=== PATIENT | female | born 1960 | race African-American/Black ===

== ENCOUNTER 2021-08-14 12:18 | Emergency (ER) | payer OTHER ==
[~2021-08-14 12:18] MED LIST: ANTIVERT25 MG PO; AZITHROMYCIN250 MG PO; BACLOFEN 20MG T20 MG PO; CEFDINIR300 MG PO; CYMBALTA20 MG PO; FLONASE ALLER15.8 ML; HCTZ25 MG PO; LISINOPRIL 20MG20 MG PO; MEDROL 4MG DOSEP4 MG PO; MOTRIN600 MG PO; NEURONTIN100 MG PO; NORCO 5-325 TA1 EACH PO; NORVASC10 MG PO; PANTOPRAZOLE SO20 MG PO; PERCOCET 5-3251 EACH PO; POTASSIUM PO; PRAVASTATIN SOD20 MG PO; PREDNISONE 20MG20 MG PO; PROMETHAZINE-D118 ML PO; TRAMADOL HCL50 MG PO; VITAMIN D35000 UNIT PO; ZOFRAN4 MG PO; ZYRTEC10 M3 PO
[2021-08-14 15:54] LABS: CORONAVIRUS 2019 SARS-COV-2 NEGATIVE (NEGATIVE); INFLUENZA A NAA NEGATIVE (NEGATIVE)
[2021-08-14] MEDS ORDERED: VENTOLIN HFA IN18 GM INH (16:55)
[2021-08-14] MEDS ORDERED: AZITHROMYCIN500 MG PO (16:55)
== END 2021-08-14 17:20 | disposition home or self-care (01) ==
LOC: FER 12:18
PROVIDERS: Nurse Practitioner Family
DX: J06.9 Acute upper respiratory infection, unspecified (principal); I10 Essential (primary) hypertension; Z20.822 Contact with and (suspected) exposure to COVID-19; Z86.73 Personal history of transient ischemic attack (TIA), and cerebral infarction without residual deficits; Z88.0 Allergy status to penicillin; Z88.2 Allergy status to sulfonamides; Z88.8 Allergy status to other drugs, medicaments and biological substances
CPT/HCPCS: 71045; U0002

== ENCOUNTER 2021-11-02 19:04 | Emergency (ER) | payer OTHER ==
[~2021-11-02 19:04] MED LIST changes: +AZITHROMYCIN500 MG PO; +VENTOLIN HFA IN18 GM INH
[2021-11-02 19:37] LABS: EOSINOPHIL 1.4 % (0-5); HCT 37.9 % (37.0-47.0); HGB 12.9 g/dl (12.5-16.0); MCH 31.9 pg (25.0-31.0); MCV 93.8 fL (78.0-100.0); NEUTROPHIL 42.3 % (41-80); NRBC 0; PLT 263 K/uL (150-400); RBC 4.04 M/uL (4.20-5.40); RDW 12.7 % (11.5-14.0); WBC 5.8 K/uL (4.0-10.5)
[2021-11-02 19:47] LABS: BILIRUBIN - TOTAL 0.5 mg/dL (0.2-1.0); CREATININE 1.42 mg/dL (0.51-0.95); GLOBULIN (CALCULATION) 3.4 g/dL; POTASSIUM 4.7 mmol/L (3.5-5.1); TOTAL PROTEIN 7.4 g/dL (6.4-8.2)
[2021-11-02 22:32] LABS: BILIRUBIN NEGATIVE (NEGATIVE); BLOOD NEGATIVE Ery/uL (NEGATIVE); CLARITY CLEAR (CLEAR); COLOR YELLOW (YELLOW); GLUCOSE (U) NORMAL (NORMAL); LEUKOCYTES NEGATIVE Leu/uL (NEGATIVE); NITRITE NEGATIVE (NEGATIVE); PROTEIN NEGATIVE (NEGATIVE); SPECIFIC GRAVITY <=1.005 (1.001-1.030); pH 6.5 (5.0-9.0)
[2021-11-02 22:39] LABS: AMPHETAMINES NEGATIVE (NEGATIVE); BARBITURATES NEGATIVE (NEGATIVE); ECSTASY (MDMA) NEGATIVE (NEGATIVE); MARIJUANA (THC) NEGATIVE (NEGATIVE); METHADONE NEGATIVE (NEGATIVE); OPIATES NEGATIVE (NEGATIVE); OXYCODONE NEGATIVE (NEGATIVE)
== END 2021-11-03 08:03 | disposition other institution (70) ==
LOC: FER 19:04
PROVIDERS: Emergency Medicine
DX: G45.9 Transient cerebral ischemic attack, unspecified (principal); F17.200 Nicotine dependence, unspecified, uncomplicated; Z20.822 Contact with and (suspected) exposure to COVID-19; Z86.73 Personal history of transient ischemic attack (TIA), and cerebral infarction without residual deficits
CPT/HCPCS: 36415; 70450; 71045; 80053; 80305; 81003; 84484; 85025; 93005; J2270; J7030; Q9967; U0002